=== PATIENT | female | born 1990 | race African-American/Black ===

== ENCOUNTER 2018-12-12 13:54 | Emergency (ER) | payer SELFPAY ==
[~2018-12-12] VITALS: Ht 167.6 cm; Wt 113.6 kg
[~2018-12-12 13:54] MED LIST: AMOXICILLIN500 MG OR; BACTRIM DS1 TAB PO; DENIES CURRENT MEDS; NO HOME MEDS; ULTRAM50 M1 PO
[2018-12-12] MEDS ORDERED: PENICILLN VK500 M1 PO (14:09)
[2018-12-12] MEDS ORDERED: MOTRIN400 MG PO (14:09)
[2018-12-12 14:21] VITALS: BP 153/91
== END 2018-12-12 14:21 | disposition home or self-care (01) | DRG 159 ==
LOC: ED 13:54
DX: K08.89 Other specified disorders of teeth and supporting structures (principal); S02.5XXA Fracture of tooth (traumatic), initial encounter for closed fracture

== ENCOUNTER 2019-03-21 12:36 | Emergency (ER) | payer OTHER ==
[~2019-03-21] VITALS: Ht 167.6 cm; Wt 111.4 kg
[~2019-03-21 12:36] MED LIST changes: +MOTRIN400 MG PO; +PENICILLN VK500 M1 PO
[2019-03-21] MEDS ORDERED: PRE-NATAL PO (13:56)
[2019-03-21 14:00] LABS: URINE BILIRUBIN - DIPSTICK NEGATIVE (NEGATIVE); URINE BLOOD DIPSTICK NEGATIVE (NEGATIVE); URINE COLOR YELLOW; URINE GLUCOSE - DIPSTICK NEGATIVE (NEGATIVE); URINE KETONE NEGATIVE (NEGATIVE); URINE LEUK ESTERASE NEGATIVE (NEGATIVE); URINE NITRITE - DIPSTICK NEGATIVE (Negative); URINE PH 5.5 (4.5-8.0); URINE PROTEIN - DIPSTICK 30 mg/dL (NEG-TRACE); URINE SPECIFIC GRAVITY >=1.030; URINE UROBILINOGEN - DIPSTICK 0.2 E.U./dL (0.2)
[2019-03-21 14:06] LABS: HEMATOCRIT 35.5 % (37.0-47.0); HEMOGLOBIN 11.5 g/dl (12.0-16.0); IMMATURE GRANULOCYTES 0.3 % (0.0-5.0); MEAN CELL VOLUME 81.8 fL CALC (80.0-100.0); MEAN CORPUSCULAR HGB 26.5 pG CALC (26.0-32.0); MEAN CORPUSCULAR HGB CONC 32.4 g/L CALC (32.0-36.0); NEUT# 3.15 thou/uL (2.00-7.15); RED BLOOD COUNT 4.34 mill/uL (4.20-5.60); RED CELL DISTRI WIDTH 15.5 % (11.5-15.5)
[2019-03-21 14:23] LABS: URINE AMORPH SEDIMENT MANY hpf (NONE-FEW); URINE SQUAMOUS EPITHELIAL CELL FEW EPI/hpf (0-FEW)
[2019-03-21 14:30] LABS: ANION GAP 14 (6-22 (CALC)); BUN 6 mg/dL (7-17); BUN/CREATININE RATIO 8 (12-20 (CALC)); CARBON DIOXIDE 22 mmol/l (22-30); CHLORIDE 106 mmol/l (95-108); CREATININE 0.8 mg/dL (0.5-1.0); GFR > 60 ML/MIN (>=60 (CALC)); GFR FOR AFR.AMER. > 60 ML/MIN (>=60 (CALC)); POTASSIUM 3.7 mmol/l (3.5-5.1); SODIUM 138 mmol/l (137-146)
[2019-03-21 16:45] VITALS: BP 132/62
== END 2019-03-21 16:45 | disposition home or self-care (01) | DRG 833 ==
LOC: ED 12:36
PROVIDERS: Family Medicine
DX: O26.811 Pregnancy related exhaustion and fatigue, first trimester (principal); Z3A.08 8 weeks gestation of pregnancy; R42 Dizziness and giddiness

== ENCOUNTER 2020-06-22 18:17 | Emergency (ER) | payer OTHER ==
[~2020-06-22] VITALS: Ht 167.6 cm; Wt 113.6 kg
[~2020-06-22 18:17] MED LIST changes: +PRE-NATAL PO
[2020-06-22] MEDS ORDERED: AMOXICILLIN875 MG PO ×2 (20:51→21:02)
[2020-06-22 21:00] VITALS: BP 137/80
== END 2020-06-22 21:00 | disposition home or self-care (01) | DRG 153 ==
LOC: ED 18:17
DX: J02.0 Streptococcal pharyngitis (principal); Z20.828 Contact with and (suspected) exposure to other viral communicable diseases
CPT/HCPCS: J0561

== ENCOUNTER 2021-01-15 09:52 | Emergency (ER) | payer OTHER ==
[~2021-01-15] VITALS: Ht 167.6 cm; Wt 114.0 kg
[~2021-01-15 09:52] MED LIST changes: +AMOXICILLIN875 MG PO
[2021-01-15] MEDS ORDERED: TYLENOL # 31 TA1 PO (10:47)
[2021-01-15] MEDS ORDERED: CLINDAMYCIN HY300 MG PO (10:47)
[2021-01-15 11:32] VITALS: BP 114/75
== END 2021-01-15 11:37 | disposition home or self-care (01) | DRG 159 ==
LOC: ED 09:52
DX: K04.7 Periapical abscess without sinus (principal); K02.9 Dental caries, unspecified

== ENCOUNTER 2021-04-09 14:27 | Emergency (ER) | payer OTHER ==
[~2021-04-09] VITALS: Ht 167.6 cm; Wt 128.0 kg
[~2021-04-09 14:27] MED LIST changes: +CLINDAMYCIN HY300 MG PO; +TYLENOL # 31 TA1 PO
[2021-04-09 17:39] VITALS: BP 157/85
== END 2021-04-09 17:40 | disposition home or self-care (01) | DRG 556 ==
LOC: ED 14:27
DX: M25.562 Pain in left knee (principal); M54.2 Cervicalgia; V43.52XA Car driver injured in collision with other type car in traffic accident, initial encounter

== ENCOUNTER 2022-04-04 21:49 | Emergency (ER) | payer OTHER ==
[~2022-04-04] VITALS: Ht 167.6 cm; Wt 118.1 kg
[2022-04-04 23:06] VITALS: BP 164/94
[2022-04-04 23:38] LABS: HEMATOCRIT 35.2 % (37.0-47.0); HEMOGLOBIN 11.1 g/dl (12.0-16.0); IMMATURE GRANULOCYTES 0.3 % (0.0-5.0); MEAN CELL VOLUME 81.5 fL CALC (80.0-100.0); MEAN CORPUSCULAR HGB 25.7 pG CALC (26.0-32.0); MEAN CORPUSCULAR HGB CONC 31.5 g/dL CAL (32.0-36.0); NEUT# 9.02 thou/uL (2.00-7.15); RED BLOOD COUNT 4.32 mill/uL (4.20-5.60)
[2022-04-04 23:39] LABS: URINE BILIRUBIN - DIPSTICK NEGATIVE (NEGATIVE); URINE BLOOD DIPSTICK SMALL (NEGATIVE); URINE COLOR YELLOW; URINE GLUCOSE - DIPSTICK NEGATIVE (NEGATIVE); URINE KETONE NEGATIVE (NEGATIVE); URINE LEUK ESTERASE NEGATIVE (NEGATIVE); URINE PROTEIN - DIPSTICK NEGATIVE (NEG-TRACE); URINE UROBILINOGEN - DIPSTICK 0.2 E.U./dL (0.2)
[2022-04-04 23:40] LABS: URINE NITRITE - DIPSTICK NEGATIVE (Negative)
[2022-04-04 23:50] LABS: ALBUMIN 3.8 g/dL (3.2-5.0); ALKALINE PHOSPHATASE 84 u/l (38-126); ANION GAP 12 (6-22 (CALC)); BUN 8 mg/dL (7-17); BUN/CREATININE RATIO 10 (12-20 (CALC)); CARBON DIOXIDE 20 mmol/l (22-30); CHLORIDE 108 mmol/l (95-108); CREATININE 0.8 mg/dL (0.5-1.0); GFR > 60 ML/MIN (>=60 (CALC)); GFR FOR AFR.AMER. > 60 ML/MIN (>=60 (CALC)); POTASSIUM 4.2 mmol/l (3.5-5.1); SGOT/AST 27 u/l (14-36); SODIUM 136 mmol/l (137-146); TOTAL PROTEIN 7.7 g/dL (6.3-8.2)
[2022-04-04 23:50] LABS: URINE BACTERIA FEW hpf; URINE SQUAMOUS EPITHELIAL CELL FEW EPI/hpf (0-FEW); URINE WBC 0-2 WBC/hpf (0-5)
[2022-04-04 23:52] LABS: BILIRUBIN, TOTAL 0.2 mg/dL (0.0-1.4)
[2022-04-05 03:21] VITALS: BP 151/75
[2022-04-05] MEDS ORDERED: TRAMADOL HCL50 MG PO (03:25)
[2022-04-05 03:30] VITALS: BP 148/84
== END 2022-04-05 03:40 | disposition home or self-care (01) | DRG 833 ==
LOC: ED 21:49
PROVIDERS: Family Medicine
DX: O9A.211 Injury, poisoning and certain other consequences of external causes complicating pregnancy, first trimester (principal); S39.012A Strain of muscle, fascia and tendon of lower back, initial encounter; X58.XXXA Exposure to other specified factors, initial encounter; Z3A.01 Less than 8 weeks gestation of pregnancy

== ENCOUNTER 2022-04-22 19:48 | Emergency (ER) | payer OTHER ==
[~2022-04-22] VITALS: Ht 167.6 cm; Wt 120.0 kg
[~2022-04-22 19:48] MED LIST changes: +TRAMADOL HCL50 MG PO
[2022-04-22] MEDS ORDERED: PRENATA3 PO (20:06)
[2022-04-22 20:27] LABS: URINE BILIRUBIN - DIPSTICK NEGATIVE (NEGATIVE); URINE BLOOD DIPSTICK MODERATE (NEGATIVE); URINE COLOR YELLOW; URINE GLUCOSE - DIPSTICK NEGATIVE (NEGATIVE); URINE KETONE NEGATIVE (NEGATIVE); URINE LEUK ESTERASE NEGATIVE (NEGATIVE); URINE PH 5.5 (4.5-8.0); URINE PROTEIN - DIPSTICK TRACE mg/dL (NEG-TRACE); URINE SPECIFIC GRAVITY >=1.030; URINE UROBILINOGEN - DIPSTICK 0.2 E.U./dL (0.2)
[2022-04-22 20:28] LABS: HEMATOCRIT 36.6 % (37.0-47.0); HEMOGLOBIN 11.9 g/dl (12.0-16.0); IMMATURE GRANULOCYTES 0.3 % (0.0-5.0); MEAN CORPUSCULAR HGB 25.7 pG CALC (26.0-32.0); MEAN CORPUSCULAR HGB CONC 32.5 g/dL CAL (32.0-36.0); NEUT# 19.01 thou/uL (2.00-7.15); RED BLOOD COUNT 4.63 mill/uL (4.20-5.60); RED CELL DISTRI WIDTH 15.6 % (11.5-15.5)
[2022-04-22 20:31] LABS: URINE NITRITE - DIPSTICK NEGATIVE (Negative)
[2022-04-22 20:34] LABS: URINE BACTERIA FEW hpf; URINE SQUAMOUS EPITHELIAL CELL FEW EPI/hpf (0-FEW); URINE WBC 0-2 WBC/hpf (0-5)
[2022-04-22 20:46] LABS: ALBUMIN 3.9 g/dL (3.2-5.0); ALKALINE PHOSPHATASE 98 u/l (38-126); AMYLASE 129 u/l (30-110); ANION GAP 17 (6-22 (CALC)); BUN 6 mg/dL (7-17); BUN/CREATININE RATIO 9 (12-20 (CALC)); CARBON DIOXIDE 20 mmol/l (22-30); CHLORIDE 103 mmol/l (95-108); CREATININE 0.7 mg/dL (0.5-1.0); GFR > 60 ML/MIN (>=60 (CALC)); GFR FOR AFR.AMER. > 60 ML/MIN (>=60 (CALC)); LIPASE 100 u/l (23-300); POTASSIUM 3.8 mmol/l (3.5-5.1); SGOT/AST 22 u/l (14-36); SODIUM 136 mmol/l (137-146); TOTAL PROTEIN 7.7 g/dL (6.3-8.2)
[2022-04-22 20:47] LABS: BILIRUBIN, TOTAL 0.4 mg/dL (0.0-1.4)
[2022-04-22 21:28] LABS: BETA-HCG, QUANT(RESULT NUMBER) 79158 mIU/mL
[2022-04-22 23:30] VITALS: BP 133/70
== END 2022-04-23 | disposition short-term general hospital (02) | DRG 832 ==
LOC: ED 19:48
PROVIDERS: Emergency Medicine
DX: O99.611 Diseases of the digestive system complicating pregnancy, first trimester (principal); K81.0 Acute cholecystitis; Z3A.09 9 weeks gestation of pregnancy

== ENCOUNTER 2022-04-30 21:26 | Emergency (ER) | payer OTHER ==
[~2022-04-30] VITALS: Ht 167.6 cm; Wt 118.0 kg
[~2022-04-30 21:26] MED LIST changes: +PRENATA3 PO
[2022-04-30 21:35] VITALS: BP 142/69
[2022-04-30 22:00] VITALS: BP 125/75
[2022-04-30 22:14] LABS: HEMATOCRIT 32.6 % (37.0-47.0); HEMOGLOBIN 10.3 g/dl (12.0-16.0); IMMATURE GRANULOCYTES 1.3 % (0.0-5.0); MEAN CELL VOLUME 81.1 fL CALC (80.0-100.0); MEAN CORPUSCULAR HGB 25.6 pG CALC (26.0-32.0); MEAN CORPUSCULAR HGB CONC 31.6 g/dL CAL (32.0-36.0); NEUT# 14.81 thou/uL (2.00-7.15); RED BLOOD COUNT 4.02 mill/uL (4.20-5.60); RED CELL DISTRI WIDTH 15.4 % (11.5-15.5)
[2022-04-30 22:20] LABS: ALBUMIN 3.3 g/dL (3.2-5.0); ALKALINE PHOSPHATASE 101 u/l (38-126); BUN 3 mg/dL (7-17); BUN/CREATININE RATIO 4 (12-20 (CALC)); CHLORIDE 102 mmol/l (95-108); CREATININE 0.7 mg/dL (0.5-1.0); GFR FOR AFR.AMER. > 60 ML/MIN (>=60 (CALC)); GFR OTHER RACES > 60 ML/MIN (>=60 (CALC)); POTASSIUM 3.3 mmol/l (3.5-5.1); SGOT/AST 24 u/l (14-36); SODIUM 137 mmol/l (137-146); TOTAL PROTEIN 6.9 g/dL (6.3-8.2)
[2022-04-30 22:30] VITALS: BP 125/71
[2022-04-30 22:32] LABS: ANION GAP 13 (6-22 (CALC)); CARBON DIOXIDE 25 mmol/l (22-30)
[2022-04-30 23:00] VITALS: BP 127/73
[2022-04-30 23:08] LABS: BETA-HCG, QUANT(RESULT NUMBER) 21444 mIU/mL
[2022-05-01] MEDS ORDERED: TRAMADOL HCL50 MG PO (00:11)
[2022-05-01] MEDS ORDERED: NAPROXEN500 MG PO (00:11)
[2022-05-01 00:12] VITALS: BP 127/73
== END 2022-05-01 00:25 | disposition home or self-care (01) | DRG 779 ==
LOC: ED 21:26
PROVIDERS: Family Medicine
DX: O03.9 Complete or unspecified spontaneous abortion without complication (principal); Z90.49 Acquired absence of other specified parts of digestive tract

== ENCOUNTER 2023-05-03 12:24 | Emergency (ER) | payer OTHER, MEDICAID ==
[~2023-05-03] VITALS: Ht 167.6 cm; Wt 120.2 kg
[~2023-05-03 12:24] MED LIST changes: +NAPROXEN500 MG PO
[2023-05-03 13:25] LABS: BASO% 0.2 % (0-3); EOS% 1.1 % (0-8); IMMATURE GRANULOCYTES 0.3 % (0.0-5.0); LYMPH% 29.7 % (15-41); MEAN CORPUSCULAR HGB 24.2 pG CALC (26.0-32.0); MEAN CORPUSCULAR HGB CONC 31.8 g/dL CAL (32.0-36.0); MONO% 7.8 % (2-13); NEUT# 8.43 thou/uL (2.00-7.15); NEUT% 60.9 % (42-76); RED BLOOD COUNT 5.29 mill/uL (4.20-5.60); RED CELL DISTRI WIDTH 16.4 % (11.5-15.5)
[2023-05-03 13:27] LABS: URINE BILIRUBIN - DIPSTICK NEGATIVE (NEGATIVE); URINE BLOOD DIPSTICK SMALL (NEGATIVE); URINE COLOR YELLOW; URINE GLUCOSE - DIPSTICK NEGATIVE (NEGATIVE); URINE KETONE NEGATIVE (NEGATIVE); URINE LEUK ESTERASE NEGATIVE (NEGATIVE); URINE PROTEIN - DIPSTICK 100 mg/dL (NEG-TRACE); URINE SPECIFIC GRAVITY 1.025; URINE UROBILINOGEN - DIPSTICK 0.2 E.U./dL (0.2)
[2023-05-03 13:28] LABS: URINE NITRITE - DIPSTICK NEGATIVE (Negative)
[2023-05-03 13:34] LABS: ALBUMIN 4.8 g/dL (3.2-5.0); BILIRUBIN, TOTAL 0.4 mg/dL (0.02-1.3); CREATININE 1.3 mg/dL (0.5-1.0); POTASSIUM 3.4 mmol/l (3.5-5.1)
[2023-05-03 13:46] LABS: URINE HYALINE CAST MODERATE lpf (NONE-RARE); URINE SQUAMOUS EPITHELIAL CELL MANY EPI/hpf (0-FEW); URINE WBC 0-2 WBC/hpf (0-5)
[2023-05-03 13:48] LABS: HEMOGLOBIN 12.8 g/dl (12.0-16.0)
[2023-05-03 13:49] LABS: HEMATOCRIT 40.2 % (37.0-47.0)
[2023-05-03] MEDS ORDERED: AZITHROMYCIN500 MG PO (16:23)
[2023-05-03 16:27] VITALS: BP 133/66
== END 2023-05-03 16:32 | disposition home or self-care (01) | DRG 373 ==
LOC: ED 12:24
PROVIDERS: Family Medicine
DX: A03.9 Shigellosis, unspecified (principal); Z20.822 Contact with and (suspected) exposure to COVID-19
CPT/HCPCS: Q9967

== ENCOUNTER 2023-07-03 13:18 | Emergency (ER) | payer OTHER, MEDICAID ==
[~2023-07-03] VITALS: Ht 167.6 cm; Wt 118.0 kg
[2023-07-03] VITALS (8 sets, daily range): BP systolic 132–156; BP diastolic 76–86
[~2023-07-03 13:18] MED LIST changes: +AZITHROMYCIN500 MG PO
[2023-07-03] MEDS ORDERED: OFLOXACIN0.3 % OU (14:23)
[2023-07-03] MEDS ORDERED: AMOX/K CLAV875 M1 PO (14:23)
== END 2023-07-03 15:08 | disposition home or self-care (01) | DRG 153 ==
LOC: ED 13:18
DX: J06.9 Acute upper respiratory infection, unspecified (principal); H10.9 Unspecified conjunctivitis; Z20.822 Contact with and (suspected) exposure to COVID-19

== ENCOUNTER 2024-05-16 18:45 | Emergency (ER) | payer OTHER ==
[~2024-05-16] VITALS: Ht 167.6 cm; Wt 120.0 kg
[~2024-05-16 18:45] MED LIST changes: +AMOX/K CLAV875 M1 PO; +OFLOXACIN0.3 % OU
[2024-05-16 19:09] VITALS: BP 156/79
[2024-05-16] MEDS ORDERED: KETOROLAC TROMETHAMINE 30 MG/ML SDV IV ONE (19:15)
[2024-05-16] MEDS ORDERED: ACETAMINOPHEN 500 MG TAB PO ONE (19:15)
[2024-05-16] MEDS ORDERED: PROMETHAZINE HCL 25 MG/ML AMP IV ONE (19:15)
[2024-05-16] MEDS ORDERED: DEXAMETHASONE SOD. PHOSPHATE 10 MG/ML VIAL IV ONE (19:15)
[2024-05-16] MEDS ORDERED: SODIUM CHLORIDE 0.9% 1,000 ML IV ONE (19:15)
[2024-05-16] MEDS ORDERED: DiphenhydrAMINE HCL 50 MG/ML SDV IV ONE (19:15)
[2024-05-16 19:32] VITALS: BP 146/86
[2024-05-16 19:37] LABS: BASO% 0.2 % (0-3); EOS% 1.3 % (0-8); HEMATOCRIT 35.1 % (37.0-47.0); IMMATURE GRANULOCYTES 0.2 % (0.0-5.0); MEAN CELL VOLUME 77.5 fL CALC (80.0-100.0); MEAN CORPUSCULAR HGB 23.6 pG CALC (26.0-32.0); MEAN CORPUSCULAR HGB CONC 30.5 g/dL CAL (32.0-36.0); MONO% 6.6 % (2-13); NEUT# 6.57 thou/uL (2.00-7.15); NEUT% 53.7 % (42-76); RED BLOOD COUNT 4.53 mill/uL (4.20-5.60); RED CELL DISTRI WIDTH 17.4 % (11.5-15.5)
[2024-05-16 19:37] LABS: URINE BILIRUBIN - DIPSTICK Negative (NEGATIVE); URINE BLOOD DIPSTICK Small (NEGATIVE); URINE GLUCOSE - DIPSTICK Negative (NEGATIVE); URINE KETONE Negative (NEGATIVE); URINE LEUK ESTERASE Trace (NEGATIVE); URINE NITRITE - DIPSTICK Negative (Negative); URINE PH 5.5 (4.5-8.0); URINE PROTEIN - DIPSTICK Negative (NEG-TRACE); URINE SPECIFIC GRAVITY 1.025; URINE UROBILINOGEN - DIPSTICK 0.2 E.U./dL (0.2)
[2024-05-16 19:40] LABS: HEMOGLOBIN 10.7 g/dl (12.0-16.0)
[2024-05-16 19:41] LABS: URINE COLOR Yellow
[2024-05-16 19:48] LABS: ALBUMIN 4.2 g/dL (3.2-5.0); POTASSIUM 3.7 mmol/l (3.5-5.1); TOTAL PROTEIN 8.7 g/dL (6.3-8.2)
[2024-05-16 19:49] LABS: BILIRUBIN, TOTAL 0.1 mg/dL (0.02-1.3)
[2024-05-16 19:55] LABS: URINE SQUAMOUS EPITHELIAL CELL FEW EPI/hpf (0-FEW)
[2024-05-16 20:31] VITALS: BP 130/59
[2024-05-16] MEDS ORDERED: TORADOL PO (20:56)
[2024-05-16 21:40] VITALS: BP 130/59
== END 2024-05-16 21:40 | disposition home or self-care (01) | DRG 103 ==
LOC: ED 18:45
PROVIDERS: Family Medicine
DX: R51.9 Headache, unspecified (principal); Z20.822 Contact with and (suspected) exposure to COVID-19